=== PATIENT | male | born 2000 | race Caucasian/White ===

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

== ENCOUNTER 2019-12-25 14:24 | Observation (INO) | payer OTHER, MEDICAID ==
[~2019-12-25] VITALS: Ht 182.9 cm; Wt 82.9 kg
[2019-12-25] MEDS ORDERED: MOBIC15 MG PO (14:49)
[2019-12-25] MEDS ORDERED: NEURONTIN100 MG/CAP PO (14:49)
[2019-12-25] MEDS ORDERED: NORCO 325 MG-7.1 TAB PO (14:49)
[2019-12-25] MEDS ORDERED: ROBAXIN 50500 MG/TAB PO (14:50)
[2019-12-25] MEDS ORDERED: PRILOSEC 20MG20 MG PO (14:50)
[2019-12-25 15:06] LABS: BASO % 0.2 % (0.0-2.0); EOS % 0.1 % (0-4.0); GRAN # 9.8 (1.4-6.5); GRAN % 86.1 % (42.2-75.2); HEMATOCRIT 41.8 % (42.0-52.0); HEMOGLOBIN 14.4 g/dl (13.5-18.0); LYMPH # 0.9 (1.2-3.4); LYMPH % 8.1 % (20.0-51.0); MEAN CELL VOLUME 92 fl (80.0-100.0); MEAN CORPUSCULAR HEMOGLOBIN 32 pg (27.0-31.0); MEAN CORPUSCULAR HGB CONC 34 g/dl (33.0-37.0); MEAN PLATELET VOLUME 9.9 fl (7.4-10.4); MONO # 0.6 (0.1-0.6); PLATELET COUNT 214 K/mm3 (130-400); RED BLOOD COUNT 4.57 M/mm3 (4.20-5.60); REDCELL DISTRIBUTION WIDTH-CV 12.7 % (11.5-14.5)
[2019-12-25 15:15] LABS: ALANINE AMINOTRANSFERASE 24 U/L (4-49); ALBUMIN 4.8 gm/dL (3.5-5.0); ALKALINE PHOSPHATASE 84 U/L (50-136); ANION GAP 10 mmol/L (7-16); AST,SGOT 40 U/L (15-37); BILIRUBIN,TOTAL 0.7 mg/dL (0.0-1.0); BLOOD UREA NITROGEN 12 mg/dL (9-20); CALCIUM 9.4 mg/dL (8.4-10.2); CARBON DIOXIDE 24 mmol/L (22-30); CHLORIDE 103 mmol/L (98-107); CREATININE, serum 0.91 (0.66-1.25); GLUCOSE 121 mg/dL (74-106); SODIUM 137 mmol/L (137-145); TOTAL PROTEIN 8.1 gm/dL (6.4-8.2)
[2019-12-25 15:29] LABS: ERYTHROCYTE SEDIMENTATION RATE 1 mm/hr (0-15)
[2019-12-25 15:49] LABS: C-REACTIVE PROTEIN < 0.5 mg/dL (0.0-0.9)
[2019-12-25 16:06] LABS: CSF APPEARANCE CLEAR; CSF COLOR COLORLESS; CSF RBC 1 /mm3 (0-0)
[2019-12-25 16:23] LABS: GLUCOSE,CSF 70 mg/dL (40-70); TOTAL PROTEIN,CSF 41 mg/dL (15-45)
[2019-12-25 16:46] LABS: CSF MONONUCLEAR 100 % (70-100); CSF POLYMORPHONUCLEAR 0 % (0-6)
[2019-12-25 16:53] LABS: CSF MONONUCLEAR 100 % (70-100); CSF POLYMORPHONUCLEAR 0 % (0-6)
[2019-12-25 18:08] VITALS: BP 152/93; PULSE 52; TEMP 98.2
--- NOTE | 2019-12-25 18:35 | NUR ---
PATIENT CAME UP TO THE UNIT FROM THE EMERGENCY DEPTARMENT. PATIENT IS A 19 YEAR OLD MALE THAT HAS BEEN HAVING HEADACHES THAT CAUSE HIM TO VOMIT. PATIENT WOULD COMPLAIN OF HIS HEAD HURTING WHEN HIS EYES WERE OPEN AND THRASH AROUND WITH THE BLANKETS BUT THEN WOULD ALMOST FALL ASLEEP AND LAY REAL STILL AND NOT ANSWER ANY QUESTIONS. MOTHER FINALLY IN ROOM THAT IS AN RN IN [employer] THAT HELPED WITH SOME OF THIS HISTORY. MEDICATION RECONCILLATION WAS COMPLETED THE BEST THAT IT COULD BE DONE WITH THE PATIENT FALLING ASLEEP AND MOTHER NOT IN ROOM. MOTHER VERIFIES THAT ONLY SIGNIFICANT HISTORY THE PATIENT HAS IS A SURGERY ON HIS BACK AND SOME BROKEN BONES. CT HEAD WAS NEGATIVE AND DONIS VERIFIED THAT THE LUMBAR PUNCTURE WAS NEGATIVE. PATIENT HAS A RIGHT AC IV WITH NORMAL SALINE AT 125 MLS/HR. PATIENT PASSED NEURO CHECKS WITH THIS NURSE. PATIENT WAS GIVEN A SPRITE AND SOME CRACKERS BUT IS COMPLAINING OF BEING HUNGRY BUT HAS VOMITED ALL DAY LONG. CALL LIGHT IN REACH. MOTHER IN ROOM. WILL REPORT OFF TO CORPORATE RELATIONS MANAGER.
[2019-12-25 19:30] VITALS: BP 154/84; PULSE 46; TEMP 98.7
--- NOTE | 2019-12-25 20:55 | NUR ---
Pt assessment completed and documented. Pt alert and oriented x4. IV phenergan and benadryl given per orders from RIAZ Osuna for throbbing headache. Pt states minor relief from headache at this time. IVF infusing to right ac IV without complications. Telemetry on. Pt denies any other needs. Call light within reach.
[2019-12-26 00:15] VITALS: BP 145/92; PULSE 50; TEMP 98.2
--- NOTE | 2019-12-26 01:10 | NUR ---
Pt requesting to take shower at this time. Pt provided shower supplies and was assisted to shower.
--- NOTE | 2019-12-26 01:50 | NUR ---
Pt returned to bed at this time from shower. Telemetry replaced. RIAZ Osuna stated it was ok to leave pacer pads off pt at this time due to HR returning to the 60's. Pacer pads placed at pts bedside. Pt requesting oral pain medication at this time for 5/10 headache. Pt states the pain to his head is no longer a throbbing pain, just aching. Pt denies any other needs. Call light within reach.
[2019-12-26 03:39] VITALS: BP 122/69; PULSE 65; TEMP 98.8
--- NOTE | 2019-12-26 05:15 | NUR ---
Pt awake on and off throughout the night. States headache is somewhat improved since admit. IVF infusing per orders to right ac IV site. Pt was able to shower overnight per his request. Telemetry on. Pt denies any other needs. Call light within reach.
--- NOTE | 2019-12-26 07:56 | NUR ---
PATIENT IS RESTING IN BED THIS MORNING. ASSESSMENT COMPLETED. 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 PATIENT TALKED ABOUT THAT AFTER BREAKFAST TO NOT EAT ANYTHING UNTIL AFTER HIS SCAN BECAUSE THE DYE CAN UPSET HIS STOMACH. PATIENT VERBALIZED AWAREANCE. POPSCILE GIVEN TO THE PATIENT UPON REQUEST. PATIENT DENYING ANY PAIN AT THIS TIME AND ANY NAUSEA. CALL LIGHT IN REACH. IV FLUIDS INFUSING IN RIGHT AC.
[2019-12-26 08:14] VITALS: BP 114/52; PULSE 53; TEMP 98.3
--- NOTE | 2019-12-26 10:44 | NUR ---
Initial visit; Patient was receptive to Diversional Therapist'S Assistant visit and talked about himself and his pricila. Scottie was receptive to prayer.
--- NOTE | 2019-12-26 11:04 | NUR ---
PATIENT IS RESTING IN BED. DR. PALM WAS IN ROOM TALKING TO THE PATIENT. PRN PAIN MEDICATION WAS GIVEN TO THE PATIENT FOR SOME BACK PAIN AND A DULL HEADACHE AT THE BASE OF HIS NECK. CALL LIGHT WITHIN REACH. DENIES ANY OTHER NEEDS AT THIS TIME.
--- NOTE | 2019-12-26 11:15 | NUR ---
PATIENT IS GOING TO MRI. MEDICATION AND FLUIDS ARE ON STANDBY UNTIL THE PATIENT RETURNS.
[2019-12-26 12:13] VITALS: BP 119/67; PULSE 60; TEMP 98
[2019-12-26] MEDS ORDERED: DEPAKOTE 250MG250 MG PO (14:00)
[2019-12-26] MEDS ORDERED: IMITREX50 MG PO (14:01)
== END 2019-12-26 14:45 | disposition home or self-care (01) ==
LOC: COL.ER 14:24 → MEDICAL 15:54
PROVIDERS: Emergency Medicine; ADMIT Hospitalist
DX: G43.919 Migraine, unspecified, intractable, without status migrainosus (principal); K21.9 Gastro-esophageal reflux disease without esophagitis; G89.29 Other chronic pain; M54.9 Dorsalgia, unspecified; Z79.899 Other long term (current) drug therapy; F17.210 Nicotine dependence, cigarettes, uncomplicated
CPT/HCPCS: 99239; A9585; G0378; J1170; J1200; J1650; J2405; J2550; J3010; J7030

== ENCOUNTER 2019-12-28 00:42 | Emergency (ER) | payer OTHER, MEDICAID ==
[~2019-12-28] VITALS: Ht 182.9 cm; Wt 81.8 kg
[~2019-12-28 00:42] MED LIST: DEPAKOTE 250MG250 MG PO; IMITREX50 MG PO; MOBIC15 MG PO; NEURONTIN100 MG/CAP PO; NORCO 325 MG-7.1 TAB PO; PRILOSEC 20MG20 MG PO; ROBAXIN 50500 MG/TAB PO
[2019-12-28 00:44] VITALS: TEMP 97.2
[2019-12-28] MEDS ORDERED: ZOFRAN ODT4 MG PO (01:35)
[2019-12-28 02:00] VITALS: BP 154/70; PULSE 51
== END 2019-12-28 02:00 | disposition home or self-care (01) ==
LOC: COL.ER 00:42
DX: G43.909 Migraine, unspecified, not intractable, without status migrainosus (principal); G89.29 Other chronic pain; M54.9 Dorsalgia, unspecified
CPT/HCPCS: J1200; J1630; J1885; J2405; J7030

== ENCOUNTER → 2020-01-09 | Outpatient (CLI) | payer OTHER, MEDICAID ==
[~2020-01-09] MED LIST changes: +ZOFRAN ODT4 MG PO
[2020-01-09 11:59] LABS: ALBUMIN 4.6 gm/dL (3.5-5.0); BILIRUBIN,TOTAL 0.5 mg/dL (0.0-1.0); CALCIUM 9.6 mg/dL (8.4-10.2); CREATININE, serum 0.89 (0.66-1.25); MAGNESIUM 2.1 mg/dL (1.6-2.3); POTASSIUM 3.9 mmol/L (3.4-5.0)
[2020-01-09 12:29] LABS: THYROID STIMULATING HORMONE 1.45 uIU/mL (0.465-4.680)
== END ==
LOC: COL.LAB 10:31
PROVIDERS: Internal Medicine Adult Congenital Heart Disease
DX: R00.1 Bradycardia, unspecified (principal)

== ENCOUNTER → 2020-02-19 | Outpatient (CLI) | payer OTHER, MEDICAID | LOC: COL.LAB | DX: R03.0 Elevated blood-pressure reading, without diagnosis of hypertension (principal) ==